=== PATIENT | female | born 1955 | race Caucasian/White ===

== ENCOUNTER → 2020-04-11 16:05 | Outpatient (CLI) | payer BC, SELFPAY ==
--- NOTE | ~2020-04-11 | MM_ITS ---
EXAMINATION: MM screening lori BI w krista HISTORY: Screening TECHNIQUE: Craniocaudal and mediolateral oblique 3-D tomosynthesis images were obtained and synthetic 2-D images were generated. CAD analysis was submitted and interpreted. COMPARISON: Comparison to multiple prior studies sequentially, with oldest reviewed study dated 10/09. BREAST PARENCHYMAL COMPOSITION: There are scattered areas of fibroglandular density. FINDINGS: There is no evidence of suspicious mass, calcification, or architectural distortion to sugg est malignancy in either breast. There has been no suspicious interval change. IMPRESSION: 1. No mammographic evidence of malignancy. 2. Recommend routine screening mammography in one year. BI-RADS Category 1: Negative Reviewed, dictated and finalized at location A. SEAT FITTER
== END ==
PROVIDERS: PCP Family Medicine; Visit Provider Family Medicine
DX: Z12.31 Encounter for screening mammogram for malignant neoplasm of breast (principal)
CPT/HCPCS: 77063; 77067

== ENCOUNTER → 2021-06-10 15:48 | Outpatient (CLI) | payer BC, SELFPAY ==
--- NOTE | ~2021-06-10 | MM_ITS ---
EXAMINATION: MM screening lori BI w krista HISTORY: Screening mammogram TECHNIQUE: Craniocaudal and mediolateral oblique 3-D tomosynthesis images were obtained and synthetic 2-D images were generated. CAD analysis was submitted and interpreted. COMPARISON: April 11, 2020, January 28, 2019, October 09, 2017 bilateral screening mammogram examin ations BREAST PARENCHYMAL COMPOSITION: There are scattered areas of fibroglandular density. FINDINGS: There is no evidence of suspicious mass, calcification, or architectural distortion to sugg est malignancy in either breast. There has been no suspicious interval change. IMPRESSION: 1. No mammographic evidence of malignancy. 2. Recommend routine screening mammography in one year. BI-RADS Category 1: Negative Reviewed, dictated and finalized at location A.
== END ==
PROVIDERS: Visit Provider Family Medicine
DX: Z12.31 Encounter for screening mammogram for malignant neoplasm of breast (principal)
CPT/HCPCS: 77063; 77067

== ENCOUNTER → 2022-07-10 07:43 | Outpatient (CLI) | payer BC, SELFPAY ==
--- NOTE | ~2022-07-10 | MMUS_ITS ---
EXAMINATION: MM diagnostic lori BI w krista, US breast LT limited HISTORY: Left breast pain TECHNIQUE: Craniocaudal, mediolateral, and mediolateral oblique 3-D tomosynthesis images of the shanique ts were performed and synthetic 2-D images were generated. CAD analysis was submitted and interpreted . High resolution limited left breast ultrasound was performed. COMPARISON: 06/10/2021, 04/11/2020, 01/28/2019 BREAST PARENCHYMAL COMPOSITION: There are scattered areas of fibroglandular density. FINDINGS: MAMMOGRAPHIC FINDINGS: No suspicious mass, calcification, or architectural distortion are identified in either breast to sug gest malignancy. There has been no suspicious interval change. No mammographic correlate is identifie d for the patient's reported left breast pain. ULTRASOUND: There is no evidence of focal abnormal solid or cystic mass in the vicinity of the patient's reported left breast pain. IMPRESSION: 1. No specific mammographic or sonographic correlate is identified for the patient's reported left br east pain. Further evaluation at this time should be based on clinical assessment. Continued follow-u p physical examination is recommended. 2. Recommend routine screening mammography in one year. BI-RADS Category 1: Negative Reviewed, dictated and finalized at location A. IMPRESSION: 1. No specific mammographic or sonographic correlate is identified for the lola ent's reported left breast pain. Further evaluation at this time should be base d on clinical assessment. Continued follow-up physical examination is recommend ed. 2. Recommend routine screening mammography in one year. BI-RADS Category 1: Negative
== END ==
PROVIDERS: PCP Family Medicine; Visit Provider Family Medicine
DX: N64.4 Mastodynia (principal)
CPT/HCPCS: 76642; 77062; 77066; G0279

== ENCOUNTER 2022-07-31 13:02 | Emergency (ER) | payer BC, SELFPAY ==
[2022-07-31 13:08] VITALS: BP 163/79; PULSE 74; RESP 16; TEMP 36.4; O2SAT 99
[2022-07-31 13:50] LABS: Basophils Absolute Auto 0.1 K/mm3 (0.0-0.1); Basophils Percent Auto 0.7 % (0.2-1.2); Eosinophils Absolute Auto 0.4 K/mm3 (0-0.3); Eosinophils Percent Auto 4.1 % (0-4.4); Hematocrit 39.3 % (37.0-47.0); Hemoglobin 13.3 g/dL (12.0-15.0); Immature Granulocyte Absolute 0.04 K/mm3 (0.00-0.031); Immature Granulocyte Percent A 0.5 % (0-0.5); Lymphocytes Absolute Auto 3.16 K/mm3 (0.9-3.2); Lymphocytes Percent Auto 36.1 % (18.3-44.2); Mean Corpuscular HGB Conc 33.8 g/dl (32-36); Mean Corpuscular Hemoglobin 30.2 pg (26-34); Mean Corpuscular Volume 89.1 fl (80-100); Mean Platelet Volume 10.4 fl (7.4-10.4); Monocytes Absolute Auto 0.5 K/mm3 (0.1-0.6); Monocytes Percent Auto 5.7 % (2.6-8.5); Neutrophils Absolute Auto 4.6 K/mm3 (1.3-6.7); Neutrophils Percent Auto 52.9 % (45.5-73.1); Platelet Count Result 310 k/mm3 (150-375); Red Blood Count 4.41 M/mm3 (4.2-5.4); Red Cell Distribution Width 13.2 % (11.5-14.5); White Blood Count 8.8 K/mm3 (4.5-10.0)
[2022-07-31 14:04] LABS: Alanine Aminotransferase 43 U/L (6-35); Albumin Level 4.5 g/dL (3.5-5.1); Alkaline Phosphatase 135 U/L (38-126); Anion Gap 7 mmol/L (8-16); Aspartate Amino Transferase 38 U/L (14-36); Bilirubin,Total 0.7 mg/dL (0.2-1.3); Blood Urea Nitrogen 24 mg/dL (7-17); Calcium 9.4 mg/dL (8.4-10.2); Carbon Dioxide 29 mmol/L (22-30); Chloride 102 mmol/L (98-107); Estimated CRCL calculation 65 ml/min; Estimated Glomerular Filt Rate > 60; Glucose 199 mg/dL (65-110); Potassium 3.8 mmol/L (3.4-5.0); Sodium 138 mmol/L (137-145)
[2022-07-31 14:13] LABS: Add Urine Microscopic? YES; Appearance Urine Clear (Clear); Bacteria Urine None Seen /hpf; Bilirubin Urine Negative (Negative); Blood Urine Negative (Negative); Color Urine Yellow (Yellow); Glucose Urine UA 3+ mg/dL (Negative); Ketones Urine Negative (Negative); Leukocyte Esterase Ur Negative LEU/UL (Negative); Need Manual Microscopic Reviewed; Nitrate Urine Negative (Negative); Non Pathogenic Casts 0-2; Protein Urine 1+ mg/dL (Negative); RBC Urine 0-2 /hpf (0-2); Specific Grav Ur 1.027 (1.001-1.035); Squamous Epithelial Cell Urine None seen /hpf (Few); Urobilinogen Urine 0.2 mg/dL (<2.0)
[2022-07-31 15:07] VITALS: O2SAT 100
[2022-07-31 15:08] VITALS: BP 141/61; O2SAT 100
[2022-07-31 15:16] VITALS: BP 145/59
--- NOTE | 2022-07-31 15:35 | ED.GENADULT ---
HPI - General Adult General Chief complaint: Recheck/Abnormal Lab/Rx Stated complaint: flank pain Time Seen by Provider: 07/31/22 13:50 History of Present Illness HPI narrative: Patient is a 66-year-old female who presents ER with concerns for protein in her urine. She was seen by the [facility] urgent care she was told she had 30+ protein in her urine and she should be evaluated by an ER. Patient reports she has had some UTI in the past and was concerned she may have another as she is having some low back discomfort over the last day. No blood in her urine or dysuria. Denies fevers or chills or sweats. Denies aggravating or alleviating factors of her symptoms. Reports she has had protein in her urine previously. Looking at her my chart it looks as though she had some Klebsiella in her urine on a recent culture in it. She was treated with cephalexin in May. Related Data Allergies Allergy/AdvReac Type Severity Reaction Status Date / Time phenazopyridine [From Azo] Allergy Nausea and Verified 07/31/22 13:34 Vomiting Review of Systems Review of Systems: All systems reviewed & are unremarkable except as noted in HPI and below Constitutional: Constitutional: Denies chills, Denies fatigue and Denies fever(s) ENT: Denies nasal congestion and Denies sore throat Cardiovascular: Cardiovascular: Denies chest pain Gastrointestinal: Gastrointestinal: Denies abdominal pain, Denies nausea and Denies vomiting Genitourinary: Genitourinary: Reports nocturia, Denies dysuria and Denies pelvic pain Musculoskeletal: Musculoskeletal: Reports back pain PMFSH Past Medical History Medical History (Updated 07/31/22 @ 15:40 by Richard Chen MD) Diabetes Hyperlipidemia Hypertension Surgical History Surgical History (Updated 07/31/22 @ 15:40 by Richard Chen MD) No pertinent past surgical history Exam Narrative: GENERAL: Well-appearing, well-nourished, and in no acute distress. HEAD: Normocephalic, atraumatic. EYES: PERRL and EOMI. ENT: Mucous membranes moist. CHEST: Clear to auscultation. No respiratory distress. HEART: Regular rate and rhythm. Normal peripheral pulses. Back: No previous with minor paraspinal muscular tenderness. EXTREMITIES: Normal range of motion. No edema. SKIN: Warm, dry, no rash. NEURO: Alert and oriented x3. PSYCH: Normal mood and affect. Course Course Emergency Course: Patient informed of results. Neuro not felt to reflect UTI or kidney stone passage. Renal function normal. Electrolytes also normal. Recommend follow-up with PCP. Recommend Tylenol for low back pain. Vital Signs Vital signs: Vital Signs Temperature 97.6 F 07/31/22 13:08 Pulse Rate 74 07/31/22 13:08 Respiratory Rate 16 07/31/22 13:08 Blood Pressure 163/79 H 07/31/22 13:08 Pulse Oximetry 99 07/31/22 13:08 Temperature 97.6 F 07/31/22 13:08 Pulse Rate 74 07/31/22 13:08 Respiratory Rate 16 07/31/22 13:08 Blood Pressure 145/59 H 07/31/22 15:16 Pulse Oximetry 100 07/31/22 15:08 Medical Decision Making Vital Signs Vital Signs: Vital Signs Temperature 97.6 F 07/31/22 13:08 Pulse Rate 74 07/31/22 13:08 Respiratory Rate 16 07/31/22 13:08 Blood Pressure 163/79 H 07/31/22 13:08 Pulse Oximetry 99 07/31/22 13:08 Temperature 97.6 F 07/31/22 13:08 Pulse Rate 74 07/31/22 13:08 Respiratory Rate 16 07/31/22 13:08 Blood Pressure 145/59 H 07/31/22 15:16 Pulse Oximetry 100 07/31/22 15:08 Lab Data 07/31/22 13:37 07/31/22 13:37 Labs: Lab Results 07/31/22 Range/Units 13:37 WBC 8.8 (4.5-10.0) K/mm3 RBC 4.41 (4.2-5.4) M/mm3 Hgb 13.3 (12.0-15.0) g/dL Hct 39.3 (37.0-47.0) % MCV 89.1 (80-100) fl MCH 30.2 (26-34) pg MCHC 33.8 (32-36) g/dl RDW 13.2 (11.5-14.5) % Plt Count 310 (150-375) k/mm3 MPV 10.4 (7.4-10.4) fl Immature Gran % (Auto) 0.5 (0-0.5) % Neut % (Auto) 52.9 (
== END 2022-07-31 15:48 | disposition home or self-care (01) ==
PROVIDERS: Emergency Provider Emergency Medicine; PCP Family Medicine
DX: R80.9 Proteinuria, unspecified (principal); M54.50 Low back pain, unspecified; E11.9 Type 2 diabetes mellitus without complications; E78.5 Hyperlipidemia, unspecified; I10 Essential (primary) hypertension
CPT/HCPCS: 36415; 80053; 81001; 85025; 87077; 87086; 87088; 99283

== ENCOUNTER → 2022-08-29 10:57 | Outpatient (CLI) | payer BC, SELFPAY ==
--- NOTE | ~2022-08-29 | US_ITS ---
EXAMINATION: US pelvic complete DATE: 08/29/2022 11:24 INDICATION: Cyst seen on CT (presumably an outside imaging study). Postmenopausal. No hormone therapy . TECHNIQUE: Multiple transabdominal and endovaginal sonographic images of the pelvis were obtained. COMPARISON: None. FINDINGS: Uterus: 6.6 x 2.6 x 3.6 cm. Endometrial complex measures 3 mm. Right Ovary: 3.5 x 3.1 x 3.7 cm. Vascular flow is present. 2.9 cm circumscribed anechoic avascular ri ght ovarian lesion with increased through transmission. Left Ovary: 1.6 x 2.0 x 3.1 cm. Vascular flow is present. No adnexal mass. There is no free fluid in the pelvis. IMPRESSION: 2.9 cm simple right ovarian cyst, a benign and consequential finding requiring no additional follow-u p. Otherwise normal transabdominal pelvic sonogram findings. Reviewed, dictated and finalized at location K. IMPRESSION: 2.9 cm simple right ovarian cyst, a benign and consequential finding requiring no additional follow-up. Otherwise normal transabdominal pelvic sonogram jami dexter.
== END ==
PROVIDERS: PCP Family Medicine; Visit Provider Family Medicine
DX: N83.291 Other ovarian cyst, right side (principal)
CPT/HCPCS: 76856

== ENCOUNTER 2023-09-07 13:17 | Outpatient (CLI) | payer OTHER, SELFPAY ==
--- NOTE | ~2023-09-07 | MM_ITS ---
EXAMINATION: MM screening lori BI w krista HISTORY: Screening TECHNIQUE: Craniocaudal and mediolateral oblique 3-D tomosynthesis images were obtained and synthetic 2-D images were generated. CAD analysis was submitted and interpreted. COMPARISON: Comparison to multiple prior studies sequentially, with oldest reviewed study dated 10/09. BREAST PARENCHYMAL COMPOSITION: Not dense: There are scattered areas of fibroglandular density. FINDINGS: There is no evidence of suspicious mass, calcification, or architectural distortion to sugg est malignancy in either breast. There has been no suspicious interval change. IMPRESSION: 1. No mammographic evidence of malignancy. 2. Recommend routine screening mammography in one year. BI-RADS Category 1: Negative Reviewed, dictated and finalized at location B.
== END 2023-09-07 13:18 ==
LOC: MICIMG 13:18
PROVIDERS: PCP Family Medicine; Visit Provider Family Medicine
DX: Z12.31 Encounter for screening mammogram for malignant neoplasm of breast (principal)
CPT/HCPCS: 77063; 77067

== ENCOUNTER 2024-07-26 10:17 | Outpatient (CLI) | payer MEDICARE, SELFPAY ==
--- NOTE | ~2024-07-26 | MMUS_ITS ---
Examination: MM diagnostic ROMANA BI W krista, US breast LT limited INDICATION: 68-year old female; Nonfocal LEFT warmth in the inferior breast and left nipple pain fo r one week. COMPARISON: 09/07/2023 through 10/09/2017 TECHNIQUE: Digital Breast Tomosynthesis CC, MLO views of Both breasts were obtained with computer-ai ded detection to assist in interpretation of the study. MAMMOGRAM FINDINGS: There are scattered areas of fibroglandular density. There are no suspicious masses, calcifications, architectural distortion or other abnormalities in Le ft breast. No mammographic abnormality correlates to the area of left breast concerns. LEFT BREAST ULTRASOUND FINDINGS: Targeted ultrasound at the area of the patient's patient's focal pain in the subareolar and inferior Left breast reveals reveals no discrete cystic or solid lesions IMPRESSION: NO EVIDENCE OF MALIGNANCY IN BILATERAL BREAST. NO MAMMOGRAPHIC OR SONOGRAPHIC ABNORMALITY CORRELATES TO THE AREA OF LEFT BREAST CLINICAL CONCERN. RECOMMENDATIONS: CLINICAL MANAGEMENT OF PATIENT'S BREAST PAIN. BI-RADS 2, BENIGN Reviewed, dictated and finalized at location B. IMPRESSION: NO EVIDENCE OF MALIGNANCY IN BILATERAL BREAST. NO MAMMOGRAPHIC OR SONOGRAPHIC ABNORMALITY CORRELATES TO THE AREA OF LEFT BREAS T CLINICAL CONCERN. RECOMMENDATIONS: CLINICAL MANAGEMENT OF PATIENT'S BREAST PAIN. BI-RADS 2, BENIGN
--- OUTSIDE RECORDS SUMMARY | 2024-07-26 10:29 | XMS_ITS | CONTINUITY OF CARE DOCUMENT ---
Author Name aec bello Address Unknown Organization [facility] [address] Address [address] [place] [address] Phone [phone] Care Team Providers Care Huller Operator Name Role Phone ace blelo Unavailable Unavailable
--- OUTSIDE RECORDS SUMMARY | 2024-07-26 10:29 | XMS_ITS | Clinical Summary ---
Author Organization [facility] Address [address] [place] [address] Care Team Providers Care Excellence Manager Name Role Phone Víctor Love MD Primary Care Provider Jono desouza Source Comments [facility],non-owned Affiliates and Associated Physician Practices is amultiple site organization consisting of ambulatory clinics and hospital sitesin [place], [place], [place] and [place]. This disclosure is being madepursuant to the Care Everywhere program and may not contain all information available regarding this patient. Last updated 17.[facility] [employer] Social History Tobacco Use Types Packs/Day Years Used Date Smoking Tobacco: Never Assessed Comments Unknown Sex and Gender Information Value Date Recorded Sex Assigned at Not on file Legal Sex Female 6:22 AM PARTS INTERPRETER Gender Identity Not on file Sexual Orientation Not on file Plan of Treatment Health Maintenance Due Date Last Done Comments BONE DENSITY TESTING 1957 COLOGUARD (AGES 45-75) - COL ON CA SCREENING 1957 COLON MONITORING 1957 COLONOSCOPY - COLON CA SCREENING 1957 CT COLONOGRAPHY - COLON CA SCREENING 1957 Colorectal Cancer Screening 1957 FIT - COLON CA SCREENING 1957 FLEX SIG - COLON CA SCREENING 1957 LIPID TESTING 1957 MAMMOGRAM 1957 HEPATITIS C SCREENING 07/29/1975 DTAP/TDAP/TD VACCINES (1 - Tdap) 1976 PNEUMOCOCCAL VACCINE 50+ (1 of 1 - PCV) 08/03/2007 ZOSTER VACCINE (1 of 2) 08/03/2007 COVID-19 VACCINE (1 - 2023-2 5 season) 2023 DEPRESSION SCREENING 02/23/2024 INFLUENZA VACCINE (Season Ended) 2024 Respiratory Syncytial Virus (RSV) Vaccine Pt: or over 60 yrs (1 - 1-dose 75+ series) 2032 HEPATITIS B VACCINE Aged Out No longe r eligible based on patient's age to complete this topic HIB VACCINE Aged Out No longer eligi ble based on patient's age to complete this topic HPV VACCINE Aged Out No longer eligi ble based on patient's age to complete this topic MENINGOCOCCAL (Group B) VACC INE SHARED DECISION-MAKING Aged Out No longer eligibl e based on patient's age to complete this topic MENINGOCOCCAL GROUPS A/C/Y/W VACCINE Aged Out No longer eligible b ased on patient's age to complete this topic Insurance Member Subscriber Plan / Payer (Ef fective 2017-Present) Name:Gregorio Shafer Relation to Subscriber:Self Name:GREGORIO SHAFER Payer ID:[id number] (NAIC) Type:PPO Address: [facility] [address] [place] [id number] Care Teams Excellence Manager Relationship Specialty Start Date End Date Víctor Love MD PCP - General 01/21/18
--- OUTSIDE RECORDS SUMMARY | 2024-07-26 10:29 | XMS_ITS | Encounter Summary ---
Author Organization [facility] Address [address] [place] [address] Care Team Providers Care Home Planning Consultant Salesperson Name Role Phone Víctor Love MD Primary Care Provider Jono desouza Encounter Details Date Type Department Care Team (Late st Contact Info) Description 08/07/2021 Lab Requisition [facility] DermPath Lab [address] [place] [address] [place] [address] [place] [address] Social History Tobacco Use Types Packs/Day Years Used Date Smoking Tobacco: Never Assessed Comments Unknown Sex and Gender Information Value Date Recorded Sex Assigned at Not on file Legal Sex Female 6:22 AM SEGREGATOR Gender Identity Not on file Sexual Orientation Not on file documented as of this encounter Plan of Treatment Not on file documented as of this encounter Procedures Procedure Name Priority Date/Time Associated Diagnosis Comments DERMATOPATHOLOGY Routine 08/06/2021 12:0 0 AM CDT documented in this encounter Results * DERMATOPATHOLOGY (08/06/2021 12:00 AM CDT) Case Report Dermatopathology Report Case: [id number] Authorizing Provider: Eze Stallings MD Collected: 08/06/2021 12:00 AM Ordering Location: [facility] DermPath Lab Received: 08/07/2021 04:47 PM Pathologist: Connie Newby MD Specimens: A) - Skin, left lower ant leg B) - Skin, right lower ant tib 1:14 PM CDT DERMATOPATHOLOGY LABORATORY Final Diagnosis Specimen A. 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 SKIN, right lower ant tib: BASAL CELL CARCINOMA, NODULAR TYPE (C44.712) (see microscopic description) 2 1:14 PM CDT DERMATOPATHOLOGY LABORATORY at 1314 CDT Clinical History A-B: R/O SCC vs psoriasis. 1:14 PM CDT DERMATOPATHOLOGY LABORATORY Gross Description Specimen A: Received is one formalin filled container labeled with the patient's name and designated left lower ant leg. The specimen consists of a shave biopsy measuring [id number]. Jar 0. Specimen B: Received is one formalin filled container labeled with the patient's name and designated right lower ant tib. The specimen consists of a shave biopsy measuring [id number]. Jar 0. 1:14 PM CDT DERMATOPATHOLOGY LABORATORY Microscopic Description Specimen A. SKIN, left lower ant leg: The epidermis shows parakeratosis, full thickness disorderly maturation of keratinocytes, mitoses at different levels, and dyskeratotic cells. Specimen B. SKIN, right lower ant tib: Collections of basaloid cells are present in the dermis, which are highlighted on a Dennis-EP4 immunohistochemical stain. Original and deeper sections were reviewed. 1:14 PM CDT DERMATOPATHOLOGY LABORATORY Disclaimer An external and internal positive and negative controls are appropriate for the histochemical, immunohistochemical and immunofluorescence stain(s) in this case (if any), except where stated explicitly. The performance characteristics of the stain(s) cited in this report were developed and its performance characteristic determined by the Dermatopathology Laboratory at [facility], directed by Dr. Sarwat Steven. These tests need not be, and therefore are not, approved by the [place] Food and Drug Administration. The tests are used for clinical purposes. Billing Codes Specimen Charges Stain Charges 83996 67986 1 1 58717 1 2 1:14 PM CDT DERMATOPATHOLOGY LABORATORY Embedded Images 1:14 PM CDT DERMATOPATHOLOGY LABORATORY Pathology/Cytology TISSUE SPECIMEN FROM SKIN / Unknown 08/06/2021 08/07/2021 4:47 PM CDT Miscellaneous samples (specimen) TISSUE SPECIMEN FROM SKIN / Unknown 08/06/2021 08/07/2021 4:47 PM CDT us Eze Stallings MD LAB - PATHOLOGY/CYTOLOGY ORDERAB LES Final Result DERMATOPATHOLOGY LABORATORY [facility] - Department of Dermatology [facility] Specialized Medicine [address] [place] [address], [address] [phone] documented in this encounter Visit Diagnoses Not on filedocumented in this encounter Care Teams Home Planning Consultant Salesperson Relationship Specialty Start Date End Date Víctor Love MD PCP - General 01/21/18 documented as of this encounter
--- OUTSIDE RECORDS SUMMARY | 2024-07-26 10:29 | XMS_ITS | Encounter Summary ---
Author Organization [facility] Healthcare Address [address] [place] [address] Care Team Providers Care Internal Grinder Tender Name Role Phone Ronan Ellis MD Primary Care Provider [phone] Reason for Visit * Reason Onset Date Comments Medical Question/Miscellaneous 01/24/2024 Encounter Details Date Type Department Care Team (Late st Contact Info) Description 01/24/2024 Telephone Family Physicians [facility] [address] [place] [address] Ronan Ellis MD [address] [place] [address] Medical Question/Miscellaneous Social History Tobacco Use Types Packs/Day Years Used Date Smoking Tobacco: Never Smokeless Tobacco: Never Alcohol Use Standard Drinks/Week Comments No 0 (1 standard drink = 0.6 oz pur e alcohol) PHQ-2 Answer Date Recorded PHQ-2 Total Score (If total score is 3 or more points, staff should administer the PHQ-9) 0 01/11/2024 Comments Unknown Sex and Gender Information Value Date Recorded Sex Assigned at Not on file Legal Sex Female 4:03 AM OPERATOR ENGINEER Gender Identity Not on file Sexual Orientation Not on file documented as of this encounter Plan of Treatment Not on file documented as of this encounter Visit Diagnoses Not on filedocumented in this encounter Additional Health Concerns Infection Onset Date Last Indicated Resolved Time COVID: Suspected 02/08/2024 02/08/2024 02/08/2024 1:52 PM OPERATOR ENGINEER documented as of this encounter Care Teams Internal Grinder Tender Relationship Specialty Start Date End Date Ronan Ellis MD [address] [place] [address] PCP - General 05/22/16 documented as of this encounter
--- OUTSIDE RECORDS SUMMARY | 2024-07-26 10:29 | XMS_ITS | Encounter Summary ---
Author Organization [facility] Address [address] [place] [address] Care Team Providers Care Motor Boss Name Role Phone Víctor Love MD Primary Care Provider Jono desouza Encounter Details Date Type Department Care Team (Late st Contact Info) Description 07/31/2021 Lab Requisition [facility] DermPath Lab [address] [place] [address] [place] [address] [place] [address] Social History Tobacco Use Types Packs/Day Years Used Date Smoking Tobacco: Never Assessed Comments Unknown Sex and Gender Information Value Date Recorded Sex Assigned at Not on file Legal Sex Female 6:22 AM GAMING COMMISSIONER Gender Identity Not on file Sexual Orientation Not on file documented as of this encounter Plan of Treatment Not on file documented as of this encounter Procedures Procedure Name Priority Date/Time Associated Diagnosis Comments DERMATOPATHOLOGY Routine 07/29/2021 3:33 AM CDT documented in this encounter Results * DERMATOPATHOLOGY (07/29/2021 3:33 AM CDT) Case Report Dermatopathology Report Case: [id number] Authorizing Provider: Eze Stallings MD Collected: 07/29/2021 03:33 AM Ordering Location: [facility] DermPath Lab Received: 07/31/2021 06:57 AM Pathologist: Connie Newby MD Specimen: Skin, left lower post leg 3:20 PM CDT DERMATOPATHOLOGY LABORATORY Final Diagnosis Specimen A. SKIN, left lower post leg: SQUAMOUS CELL CARCINOMA IN SITU (RETANA'S DISEASE) (D04.72) 2 3:20 PM CDT DERMATOPATHOLOGY LABORATORY at 1520 CDT Clinical History R/O Neoplasm vs. Psoriasis 2 3:20 PM CDT DERMATOPATHOLOGY LABORATORY Gross Description Specimen A: Received is one formalin filled container labeled with the patient's name and designated left lower post leg. The specimen consists of a shave biopsy measuring [id number]. Jar 0. 2 3:20 PM CDT DERMATOPATHOLOGY LABORATORY Microscopic Description Specimen A. SKIN, left lower post leg: The epidermis shows parakeratosis, full thickness disorderly maturation of keratinocytes, mitoses at different levels, and dyskeratotic cells. 2 3:20 PM CDT DERMATOPATHOLOGY LABORATORY Disclaimer An external and internal positive and negative controls are appropriate for the histochemical, immunohistochemical and immunofluorescence stain(s) in this case (if any), except where stated explicitly. The performance characteristics of the stain(s) cited in this report were developed and its performance characteristic determined by the Dermatopathology Laboratory at [facility], directed by Dr. Sarwat Steven. These tests need not be, and therefore are not, approved by the [place] Food and Drug Administration. The tests are used for clinical purposes. Billing Codes Specimen Charges Stain Charges 98634 1 2 3:20 PM CDT DERMATOPATHOLOGY LABORATORY Embedded Images 2 3:20 PM CDT DERMATOPATHOLOGY LABORATORY Pathology/Cytolo gy TISSUE SPECIMEN FROM SKIN / Unknown 07/29/2021 3:33 AM CDT 07/31/2021 6:57 AM CDT us Eze Stallings MD LAB - PATHOLOGY/CYTOLOGY ORDERAB LES Final Result DERMATOPATHOLOGY LABORATORY [facility] - Department of Dermatology [facility] Medicine [address] [place] [address], [address] [place] [address], [facility] [phone] documented in this encounter Visit Diagnoses Not on filedocumented in this encounter Care Teams Motor Boss Relationship Specialty Start Date End Date Víctor Love MD PCP - General 01/21/18 documented as of this encounter
--- OUTSIDE RECORDS SUMMARY | 2024-07-26 10:29 | XMS_ITS | Encounter Summary ---
Author Organization [facility] Healthcare Address [address] [place] [address] Care Team Providers Care Chinchilla Machine Operator Name Role Phone Ronan Ellis MD Primary Care Provider [phone] Encounter Details Date Type Department Care Team (Late st Contact Info) Description 02/07/2024 Telephone Family Physicians [facility] [address] [facility] [place] [address] Ronan Ellis MD [facility] [place] [address] Social History Tobacco Use Types Packs/Day Years [...] on file Legal Sex Female 4:03 AM MARKETING SALES MANAGER Gender Identity Not on file Sexual Orientation Not on file documented as of this encounter Plan of Treatment Not on file documented as of this encounter Visit Diagnoses Not on filedocumented in this encounter Additional Health Concerns Infection Onset Date Last Indicated Resolved Time COVID: Suspected 02/08/2024 02/08/2024 02/08/2024 1:52 PM MARKETING SALES MANAGER documented as of this encounter Care Teams Chinchilla Machine Operator Relationship Specialty Start Date End Date Ronan [place] [address] PCP - General 05/22/16 documented as of this encounter
--- OUTSIDE RECORDS SUMMARY | 2024-07-26 10:29 | XMS_ITS | Encounter Summary ---
Author Organization [facility] Address [address] [place] [address] Care Team Providers Care Talent Partner Name Role Phone Ronan Ellis MD Primary Care Provider [phone] Reason for Visit * Reason Onset Date Comments Prior Auth for Novolog Flex pen 07/25/2024 Encounter Details Date Type Department Care Team (Late st Contact Info) Description 07/25/2024 Telephone [facility] [address] [place] [address] Ronan Ellis MD [address] [place] [id number] Prior Auth for Novolog Flex pen Social History Tobacco Use Types Packs/Day Years Used Date Smoking Tobacco: Never Smokeless Tobacco: Never Alcohol Use Standard Drinks/Week Comments No 0 (1 standard drink = 0.6 oz pur e alcohol) PHQ-2 Answer Date Recorded PHQ-2 Total Score (If total score is 3 or more points, staff should administer the PHQ-9) 0 07/11/2024 Comments Unknown Sex and Gender Information Value Date Recorded Sex Assigned at Not on file 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 and made aware that Novolog Flex Pen was already PA approval back on 03/07/2024 and good till 02/21/2025. They only will approval 30 days supply so updated in the computer and wentthrough with no problem. * Telephone Encounter - Amber Jenkins CMA - 07/25/2024 9:31 AM CDT Received fax pharmacy in reference to Novolog Flex Pen is needing a PA through cover my meds with [employer]:[id number]. Will phone pharmacy to make aware Prior authorization approval for Novolog Flexkacey angelo from 03/07/2024- 02/21/2025 has already been done. documented in this encounter Plan of Treatment Not on file documented as of this encounter Visit Diagnoses Not on filedocumented in this encounter Care Teams Talent Partner Relationship Specialty Start Date End [place] [address] PCP - General 05/22/16 documented as of this encounter
--- OUTSIDE RECORDS SUMMARY | 2024-07-26 10:29 | XMS_ITS | Clinical Summary ---
Author Organization [facility] [facility] [place] Address [address] [place] [address] Care Team Providers Care Ankle Patch Molder Name Role Phone Ronan Ellis MD Primary Care Provider [phone] Allergies Active Allergy Reactions Criticality Noted Date Comments Phenazopyridine Medications flash glucose sensor (FreeStyle Xochitl 14 Day Sensor) kitIndications:Typ e 2 diabetes mellitus with hyperglycemia, with long-term current use of insulin (HCC) Change every 14 days 3 kit 3 020 Active pen needle, diabetic (BD Ultra-Fine Ligia Pen Needle) 32 gauge x 5/32 needle Use as directed with toujeo and humalog pens. 100 each 024 Active albuterol HFA (PROVENTIL HFA,VENTOLIN HFA,PROAIR HFA) 90 mcg/actuation inhaler 2 puffs every 4 (four) hours as needed 024 Active guaiFENesin-codein e (GUAITUSS AC) liquid 100-10 mg/5 mL Take 5-10 mL by mouth every 4 (four) hours as needed for cough 120 mL 024 Active insulin aspart niacinamide (FIASP) 100 unit/mL (3 mL) pen for injection Inject 1-4 times per day SQ as directed. Dose as per sliding scale. Maximum of 45 units/day 45 mL 3 024 Active insulin regular (HumuLIN R, NovoLIN R) 100 unit/mL vial for injection Inject 1-4 times SQ as directed per sliding scale. Maximum of 45 units/day. 40 mL 024 Active insulin syringe-needle U-100 0.5 mL 31 gauge x 5/16 syringe Use to inject 1-4 times daily as directed. 300 each 4 024 Active cyclobenzaprine (FLEXERIL) 10 mg tablet Take 1 tablet (10 mg total) by mouth 3 (three) times a day as needed for muscle spasms 30 tablet Active blood-glucose sensor (FreeStyle Xochitl 3 Sensor) device 1 Units every 14 (fourteen) days 6 each 3 024 Active colestipoL (COLESTID) 1 gram tabletIndications: Mixed hyperlipidemia TAKE 1 TABLET BY MOUTH EVERY DAY 90 tablet 2 Active insulin glargine 100 unit/mL (3 mL) pen for injection Inject 70 Units under the skin daily 45 mL 4 025 Active fenofibrate nanocrystallized (TRICOR) 145 mg tablet Take 1 tablet (145 mg total) by mouth daily 90 tablet 3 025 Active omeprazole (PriLOSEC) 40 mg capsule TAKE 1 CAPSULE BY MOUTH DAILY 90 capsule 3 025 Active potassium chloride ER 20 mEq CR tablet TAKE 1 TABLET BY MOUTH DAILY 90 tablet 3 025 Active furosemide (LASIX) 40 mg tablet TAKE 1 TABLET BY MOUTH DAILY 90 tablet 3 025 Active pravastatin (PRAVACHOL) 20 mg tablet TAKE 1 TABLET BY MOUTH DAILY 90 tablet 3 025 Active irbesartan-hydroch lorothiazide (AVALIDE) 150-12.5 mg per tablet TAKE 1 TABLET BY MOUTH DAILY 100 tablet 2 025 Active insulin aspart (NovoLOG) 100 unit/mL (3 mL) pen for injection INJECT SUBCUTANEOUSLY 1 TO 4 TIMES DAILY DIRECTED PER SLIDING SCALE. MAXIMUM OF 45 UNITS/DAY. 15 mL 11 025 Active empagliflozin (JARDIANCE) 25 mg tablet Take 1 tablet (25 mg total) by mouth daily 30 tablet 2 025 Active dapagliflozin propanediol (Farxiga) 5 mg tablet Take 1 tablet (5 mg total) by mouth daily 90 tablet 3 023 07/11 Discontinued( Alternate therapy) empagliflozin (JARDIANCE) 10 mg tablet Take 1 tablet (10 mg total) by mouth daily 90 tablet 1 025 07/11 Discontinued( Alternate therapy) insulin aspart (NovoLOG) 100 unit/mL (3 mL) pen for injection Inject SQ 1-4 times daily as directed per sliding scale. Maximum of 45 units/day. Must submit claim as INSULIN ASPART. 45 mL 1 025 07/05 Discontinued irbesartan-hydroch lorothiazide (AVALIDE) 150-12.5 mg per tablet Take 1 tablet by mouth daily 100 tablet 025 06/29 Discontinued Active Problems Problem Noted Date Diagnosed Date History of nonmelanoma skin cancer 07/17/2024 Assessment & Plan (07/17/2024 7:40 AM CDT): Referral to dermatology for skin f/u on evaluation for prior and new skin lesion and will monitor response. Skin lesion of left leg 07/17/2024 Assessment & Plan (07/17/2024 7:40 AM CDT): As above. No s/s of secondary bacterial infection. Acute cough 02/08/2024 Assessment & Plan (02/08/2024 12:32 PM INSTRUCTIONAL DESIGN MANAGER): Negative swabs today. Clinically stable. Will continue with conservative measures. Red flags reviewed. Flank pain 01/23/2024 Assessment & Plan (02/08/2024 12:31 PM INSTRUCTIONAL DESIGN MANAGER): Reviewed recent workup. UA unremarkable. Recommend treating for musculoskeletal strain. Muscle relaxant, gentle stretching, heat. Red flags reviewed. Monitor response. She is in agreement with plan states understanding. Assessment & Plan (01/23/2024 1:42 PM INSTRUCTIONAL DESIGN MANAGER): Reivweed redf lag s/s. Reviweed prior w/up. Reivweed and montior for blood in the stools, or blood in the urine. WIll montiro response. Gastroesophageal reflux disease 01/23/2024 Assessment & Plan (07/17/2024 7:39 AM CDT): Stable on omeprazole and will continue with no dysphaiga, no melena, no hematochezia. Assessment & Plan (01/23/2024 1:43 PM INSTRUCTIONAL DESIGN MANAGER): Stable on ppi. No dysphagia. No blood in the stools, no melena. Type 2 diabetes mellitus with hyperlipidemia 02/2023 Assessment & Plan (07/17/2024 7:38 AM CDT): Continues on secondary prevention with pravastatin and will monitor response. No new myalgias/arthalgias and will monitor response. Assessment & Plan (01/23/2024 1:43 PM INSTRUCTIONAL DESIGN MANAGER): Stable on pravastatin. No intolernce to myalgias. BMI 33.0-33.9,adult 01/23/2024 Assessment & Plan (01/23/2024 1:43 PM INSTRUCTIONAL DESIGN MANAGER): Encourage 150min/week aerobic exericse. Heatlhy food chocies. Target of 150min/week aerobic exercise. Obesity (BMI 30.0-34.9) 01/23/2024 Assessment & Plan (07/17/2024 7:39 AM CDT): Encourage 150min/week aerobic exericse. Healthy food choices. Reviewed glp-1 agonist therpay and patient concerned about gi side effects. Assessment & Plan (01/23/2024 1:43 PM INSTRUCTIONAL DESIGN MANAGER): As above. Lower respiratory tract infection 09/01/2023 Assessment & Plan (09/01/2023 12:20 PM CDT): Clinically stable. Will initiate Augmentin. Recommend Mucinex. Will also E scribe Cheratussin. Take with caution as can cause sedation, do not drive. Continue with albuterol inhaler use. Will defer steroids due to uncontrolled diabetes. Will order chest x-ray to complete if not improving in the next 3 days. We reviewed red flags which would warrant RTC or ED. she is in agreement with plan and states understanding. BMI 31.0-31.9,adult 07/11/2020 Overview (07/11/2020): ENcourage regualr aerobic exercise adn follow response. Mixed hyperlipidemia 05/16/2017 Hypertension associated with diabetes 03/02/2017 Assessment & Plan (07/17/2024 7:37 AM CDT): Stable on avalide 150/12.5mg. reivwed home bp targets and will continue to follow response. No chest pains/pressures/palptiations. Assessment & Plan (02/08/2024 12:30 PM INSTRUCTIONAL DESIGN MANAGER): Normotensive. Continue irbesartan/hydrochlorothiazide. Will continue to monitor. Assessment & Plan (01/23/2024 1:42 PM INSTRUCTIONAL DESIGN MANAGER): OCntinues on irbesartan/hctz and will folwlor espnose. Assessment & Plan (09/01/2023 12:19 PM CDT): Normotensive. Continue irbesartan/hydrochlorothiazide. Will continue to monitor. Assessment & Plan (01/21/2020 11:56 AM INSTRUCTIONAL DESIGN MANAGER): Reviweed goal blood pressure and contineu on arb-diuretic. Type 2 diabetes mellitus wit h hyperglycemia, with long-term current use of insulin 07/10/2015 Overview (05/28/2016): Diabetes type 2 on insulin Assessment & Plan (07/17/2024 7:38 AM CDT): Reivewed use of humulin and lantus with uptitration and will follow for evidence of improved control and decreased hypoglycemia. Assessment & Plan (02/08/2024 12:30 PM INSTRUCTIONAL DESIGN MANAGER): Continue with current regimen. CGM applied today. Monitor blood glucose. Offered referral to Endocrinology but she declines. Keep follow-up as scheduled with PCP. Red flags reviewed. Assessment & Plan (01/23/2024 1:42 PM INSTRUCTIONAL DESIGN MANAGER): Secondary prevneiton. Reviewed glycemic target. Reviweed and montior for hypoglycemia with rapid acting insulin. WIll follow response. Assessment & Plan (09/01/2023 12:19 PM CDT): Not at goal. Recent medication adjustments. Reports blood glucose 150 in the mornings fasting. Will continue to monitor. Red flags reviewed. Will defer steroids. Assessment & Plan (05/16/2019 3:24 PM CDT): Hba1c was Lab Results Component Value Date HGBA1C 8.6 05/16/2019 today, indicating inadequate DM control 1800 calorie, consistent carb diet recommended. No more than 30-45 grams of carbs per meal recommended, as well as avoiding high concentrated sweet drinks . 25-45 min daily exercise, combining both aerobic and resistance exercise recommended. The need to monitor blood glucose before meals and bedtime was discussed. Prevention and treatment of hyypoglcyemia discussed. Check sugars before meals and bedtime Take Toujeo, 60 units at bedtime Take Novolog, 12 units with meals For sugars over 150, take 14 units For sugars over 200, take 16 units For sugars over 250, take 18 units For sugars over 300, take 20 units Stop Victoza Start Ozempic, 0.25 mg weekly x 4 week, Then continue 0.5 mg weekly Will request a Xochitl continous glucose monitoring Encounters Date Type Department Care Team Description 07/25/2024 Telephone [facility] [address] [address] Ronan Ellis MD Prior Auth for Novolog Flex pen 07/20/2024 Telephone [facility] [address] [address] Ronan Ellis MD Additional Services Or Orders 07/11/2024 4:00 PM CDT Office Visit [facility] at [address] [address] Ronan Ellis MD Skin lesion of left leg (Primary Dx); History of nonmelanoma skin cancer; Hypertension associated with diabetes (HCC); Type 2 diabetes mellitus with hyperlipidemia (HCC); Type 2 diabetes mellitus with hyperglycemia, with long-term current use of insulin (HCC); Gastroesophageal reflux disease, unspecified whether esophagitis present; BMI 34.0-34.9,adult; Obesity (BMI 30.0-34.9) 05/18/2024 Nurse Triage [facility] [address] [place] [address] Ronan Ellis MD from Last 3 Months Immunizations Immunization Administration Dates Next Due Influenza, Quadrivalent, Rec ombinant, Egg Free, Preservative Free, Intramuscular 12/15/2019 Influenza, Quadrivalent, Spl it, Intramuscular 11/21/2014 Influenza, Quadrivalent, Spl it, Preservative Free, Intramuscular 12/15/2022,01/13/2021,11/26/2018,11/25 Influenza, Trivalent, High D ose, Split, Preservative Free, Intramuscular 01/11/2024 Influenza, Trivalent, IM (MDV) 02/22/2013 Influenza, Unspecified 01/11/2024(Deferr ed: Patient Refused),09/09/2022(Deferred: Patient Refused),08/05/2022(Deferred: Patient Refused),07/13/2022(Deferred: Patient Refused),10/23/2021(Deferred: Patient Refused),10/23/2021(Deferred: Patient Refused),10/23/2021(Deferred: Patient Refused),11/26/2017,11/26/2017, 017,11/26/2016 Pfizer SARS-CoV-2 Monovalent Vaccination (12+ Yrs) PURPLE 05/15/2020,04/25/2020 Pneumococcal Conjugate Pcv20 01/11/2024, 09/01/2023(Deferred: Patient ill today) Pneumococcal Polysaccharide PPV23 07/23/2021 RSV IGIV 12/28/2022 TD Preservative Free 09/22/2014 Surgical History Surgery Date Site/Laterality Comments APPENDECTOMY Appendectomy CHOLECYSTECTOMY ROTATOR CUFF REPAIR Medical History Medical History Date Comments Type 2 diabetes mellitus (HCC) D iabetes type 2 Hypertension Hypertension Hx Other Medical cholesterol Hx Other Medical colon issues Hx Other Medical gall bladder Hx Other Medical rotator cuff Hyperlipidemia Family History * Patient is adopted Medical History Relation Name Comments Diabetes type II Brother 3 Diabetes me llitus type 2; Coronary artery disease Brother 4 David nary artery disease; Hypertension Brother 5 Hypertension; Coronary artery disease Father David nary artery disease; Diabetes type II Father Diabetes me llitus type 2; Hypertension Father Hypertension; Thyroid disease Father Thyroid diso rder; Breast cancer Mother Cancer, breast ; Hypertension Mother Hypertension; Stroke Mother Stroke; Heart attack Sister 1 Other Sister 1 sarcidoses; Diabetes type II Sister 2 Diabetes me llitus type 2; Hypertension Sister 3 Hypertension; Thyroid disease Sister 4 Thyroid diso rder; Relation Name Status Comments Brother 1 (Age 61) Brother 2 (Age 61) Brother 3 Brother 4 Brother 5 Father (Age 69) Mother (Age 82) Sister 1 Sister 2 Sister 3 Sister 4 Social History Tobacco Use Types Packs/Day Years Used Date Smoking Tobacco: Never Smokeless Tobacco: Never Tobacco Cessation:Counseling Given: Not Answered Alcohol Use Standard Drinks/Week Comments No 0 (1 standard drink = 0.6 oz pur e alcohol) PHQ-2 Answer Date Recorded PHQ-2 Total Score (If total score is 3 or more points, staff should administer the PHQ-9) 0 07/11/2024 Comments Unknown Sex and Gender Information Value Date Recorded Sex Assigned at Not on file Legal Sex Female 4:03 AM INSTRUCTIONAL DESIGN MANAGER Gender Identity Not on file Sexual Orientation Not on file Obstetrics History Last Filed Vital Signs Vital Sign Reading Time Taken Comments Blood Pressure 144/70 07/11/2024 3:52 PM CDT Pulse 76 07/11/2024 3:52 PM CDT Temperature 36.6 C (97.8 F) 07/11/2024 3:52 PM CDT Respiratory Rate 20 02/08/2024 11:38 AM INSTRUCTIONAL DESIGN MANAGER Oxygen Saturation 98% 07/11/2024 3:52 PM CDT Inhaled Oxygen Concentration - - Weight 88.5 kg (195 lb 1.6 oz) 07/11/2024 3:52 PM CDT Height 161.3 cm (5' 3.5) 07/11/2024 3:52 PM CDT Body Mass Index 34.02 07/11/2024 3:52 PM CDT Plan of Treatment Health Maintenance Due Date Last Done Comments Hepatitis C Screening 1955 Osteoporosis Screening-Bone Density Scan 1955 Hepatitis B Screening 08/03/1975 Zoster Vaccine (1 of 2) 08/03/2007 DTaP/Tdap/Td Vaccine (1 - Tdap) 09/23/2014 5 Foot Exam 05/15/2020 05/16/2019, 03/25, 03/29/2018, Additional history exists Colon Cancer Screening-Colonoscopy 02/22/2021 02/22/2011 Well Visit 65+ 2022 Breast Cancer Screening-Mammogram 07/11/2023 07/10/2022, 06/10/2021, 01/28/2019, Additional history exists Covid-19 Vaccine (3 - 2023-2 5 season) 2023 05/15/2020, 04/25/2020 Dilated Eye Exam 05/24/2024 05/25/2023, , 05/19/2022, Additional history exists Albumin Creatinine Ratio, Urine 06/21/2024 4, 09/09/2022 Hemoglobin A1C 07/25/2024 01/25/2024, 05/25, 12/24/2022, Additional history exists Lipid Panel 01/24/2025 01/25/2024, 3 , 12/24/2022, Additional history exists eGFR 01/24/2025 01/25/2024, 05/25, 12/24/2022, Additional history exists Fall Risk Assessment 02/07/2025 02/08/2024, 01/11/2024, 09/01/2023, Additional history exists Depression Screening 07/11/2025 07/11/2024, 01/11/2024, 06/22/2023, Additional history exists Colon Cancer Screening-CT Colonography Discontinued 02/22/2011 Colon Cancer Screening-DNA Stool Discontinued 02/22/19 12 Colon Cancer Screening-FIT Discontinued 02/22/2011 Colon Cancer Screening-Sigmoidoscopy Discontinued 02/22/2011 Influenza Vaccine Completed 01/11/2024, , 01/13/2021, Additional history exists Pneumococcal vaccine 65+ Completed 01/11/2024, 06/0 02/2021 Procedures Procedure Name Priority Date/Time Associated Diagnosis Comments EGFR Routine 01/25/2024 9:32 AM INSTRUCTIONAL DESIGN MANAGER Type 2 diabetes mellitus with hyperglycemia, with long-term current use of insulin (HCC) HEMOGLOBIN A1C Routine 01/25/2024 9:32 AM INSTRUCTIONAL DESIGN MANAGER Type 2 diabetes mellitus with hyperglycemia, with long-term current use of insulin (HCC) LIPID PANEL Routine 01/25/2024 9:32 AM INSTRUCTIONAL DESIGN MANAGER Type 2 diabetes mellitus with hyperglycemia, with long-term current use of insulin (HCC) ALBUMIN CREATININE RATIO, URINE Routine 06/22/2023 4:12 PM CDT Type 2 diabetes mellitus with hyperglycemia, with long-term current use of insulin (HCC) DIABETES EYE EXAM Routine 05/25/2023 9:06 AM CDT DIAGNOSTIC MAMMOGRAM BILATERAL W MARYAM Schedule Routine, Read Routine (OP Routine) 07/10/2022 Breast pain DIABETES FOOT EXAM Routine 03/02/2017 COLONOSCOPY Routine 02/22/2011 from Last 3 Months or Most Recently Relevant to Health Maintenance Results * (ABNORMAL) eGFR (01/25/2024 9:32 AM INSTRUCTIONAL DESIGN MANAGER) eGFR 51(L) >=60 mL/min/1. 73 m2 Comment: Interpretive Data Reference Interval Normal >/= 90 mL/min/1.73m2 Mildly decreased* 60 - 89 mL/min/1.73m2 Mildly to moderately decreased 45 - 59 mL/min/1.73m2 Moderately to severely decreased 30 - 44 mL/min/1.73m2 Severely decreased 15 - 29 mL/min/1.73m2 Kidney Failure < 15 mL/min/1.73m2 *Relative to young adult level Estimated glomerular filtration rate is determined by the 2020 CKD-EPI equation recommended by the National Kidney Foundation (A Unifying Approach to GFR Estimation: Recommendations of the NKF-ASK Task Force on Reassessing the Inclusion of Race in Diagnosing Kidney Disease, JASN 2020). The CKD-EPI equation should not be used for patients with unstable renal function and has not been validated in children and those over 70. Current interpretive data was last reviewed 2020. Blood 01/25/2024 9:32 AM INSTRUCTIONAL DESIGN MANAGER 01/25/2024 5:25 PM INSTRUCTIONAL DESIGN MANAGER Ronan Ellis MD LAB BLOOD ORDERABLES Emma l Result Performing Organization Address [facility] [place] [phone] [address] [facility] [employer] [place] [address] * (ABNORMAL) Hemoglobin A1c (01/25/2024 9:32 AM INSTRUCTIONAL DESIGN MANAGER) Hgb A1C 10.5(H) 4.0 - 5.6 % Estimated Average Glucose 255 mg/dL MA[place] Comment: The ADA recommends reporting an estimated Average Glucose (eAG) with all Hemoglobin A1c results using the equation derived from a study of 507 normal and diabetic adults. Minority populations were underrepresented and children were not included. (Diabetes Care 31:8878-5113, 2008). The eAG is not equivalent to a fasting glucose. Blood 01/25/2024 9:32 AM INSTRUCTIONAL DESIGN MANAGER 01/25/2024 5:04 PM INSTRUCTIONAL DESIGN MANAGER Ronan Ellis MD LAB BLOOD ORDERABLES Emma l Result Performing Organization Address [facility] [place] [phone] [address] [facility] [employer] [place] [address] * (ABNORMAL) Lipid panel (01/25/2024 9:32 AM INSTRUCTIONAL DESIGN MANAGER) Cholesterol 283(H) 30 - 199 mg/dL Comment: Interpretive Data Ages < or = 19 years Acceptable: <170 mg/dL Borderline high: 170-199 mg/dL High: >or= 200 mg/dL Ages > or = 20 years Desirable: <200 mg/dL Borderline high: 200-239 mg/dL High: >or= 240 mg/dL Literature References: 1. Expert Panel on Integrated Guidelines for Cardiovascular Health and Risk Reduction in Children and Adolescents. Pediatrics 2011;128:S213 2. NCEP Expert Panel. Circulation 2004;110:227 Current Interpretive Data was last revised on 2017. Triglycerides 825(H) <=149 mg/dL MANAS Comment: Interpretive Data Ages < or = 9 years Acceptable: <75 mg/dL Borderline high: 75-99 mg/dL High: >or= 100 mg/dL Ages 10 to 20 years Acceptable: <90 mg/dL Borderline high: 90-129 mg/dL High: >or= 130 mg/dL Ages > or = 20 years Desirable: <150 mg/dL Borderline high: 150-199 mg/dL High: 200-499 mg/dL Very high: >or= 499 mg/dL Literature References: 1. Expert Panel on Integrated Guidelines for Cardiovascular Health and Risk Reduction in Children and Adolescents. Pediatrics 2011;128:S213 2. NCEP Expert Panel. Circulation 2004;110:227 Current Interpretive Data was last revised on 2017. HDL 29(L) >=40 mg/dL MANAS Comment: Interpretive Data Ages < or = 19 years Acceptable: >45 mg/dL Borderline low: 40-45 mg/dL Low: <40 mg/dL Ages > or = 20 years Desirable: >or= 60 mg/dL Low: <40 mg/dL Literature References: 1. Expert Panel on Integrated Guidelines for Cardiovascular Health and Risk Reduction in Children and Adolescents. Pediatrics 2011;128:S213 2. NCEP Expert Panel. Circulation 2004;110:227 Current Interpretive Data was last revised on 2017. LDL, calculated See Comment <=129 mg/dL MANAS Comment: Unable to calculate due to elevated Triglycerides. Interpretive Data Ages < or = 19 years Acceptable: <110 mg/dL Borderline high: 110-129 mg/dL High: >or= 130 mg/dL Ages > or = 20 years Optimal: <100 mg/dL Near optimal: 100-129 mg/dL Borderline high: 130-159 mg/dL High: >160 mg/dL Calculated using the Billy LDL-C estimating equation. This equation was implemented on 2023. Prior to this date LDL-C was estimated using the Friedewald equation. Literature References: 1. Expert Panel on Integrated Guidelines for Cardiovascular Health and Risk Reduction in Children and Adolescents. Pediatrics 2011;128:S213 2. NCEP Expert Panel. Circulation 2004;110:227 3. Billy Culver et al. CLAUDIO Cardiol. 2019June 22;5(5):540549. doi: 10.1001/[email or web address] Current Interpretive Data was last revised on 2023. Non-HDL Cholesterol 254 mg/dL MANAS Comment: Interpretive Data Ages < or = 19 years Acceptable: <120 mg/dL Borderline high: 120-144 mg/dL High: >145 mg/dL Ages > or = 20 years When triglycerides are >200 mg/dL, Non-HDL cholesterol is a secondary target of therapy with treatment goals that are 30 mg/dL greater than the LDL cholesterol target. Literature References: 1. Expert Panel on Integrated Guidelines for Cardiovascular Health and Risk Reduction in Children and Adolescents. Pediatrics 2011;128:S213 2. NCEP Expert Panel. Circulation 2004;110:227 Current Interpretive Data was last revised on 2017. Chol/HDL ratio 10 [facility] Blood 01/25/2024 9:32 AM INSTRUCTIONAL DESIGN MANAGER 01/25/2024 5:04 PM INSTRUCTIONAL DESIGN MANAGER Ronan Ellis MD LAB BLOOD ORDERABLES Emma l Result Performing Organization Address [facility] Co de Phone Number [facility] [phone] [place] [address] * (ABNORMAL) Albumin Creatinine Ratio, Urine (06/22/2023 4:12 PM CDT) Albumin Ur 106.7 mg/L Comment: Interpretive Data No reference range established. Current interpretive data was last revised 2018. Creatinine Ur 22.2 mg/dL [facility] Comment: Interpretive Data No reference range established. Current interpretive data was last revised 2018. Albumin Creatinine Ratio, Ur 481(H) 1 - 29 mg/g [facility] Urine 06/22/2023 4:12 PM CDT 06/22/2023 7:49 PM CDT Ronan Ellis MD LAB URINE ORDERABLES Emma l Result Performing Organization Address City/[facility] Co de Phone Number [facility] [phone] [address] [place] [address] * (ABNORMAL) DIABETES EYE EXAM (05/25/2023 9:06 AM CDT) SCRIBED DIABETIC DILATED EYE EXAM Abnormal Historical Provider HEALTH MAINTENANCE Final Result * DIAGNOSTIC MAMMOGRAM BILATERAL W MARYAM (07/10/2022) Anatomical Region Laterality Modality Breast Bilateral Mammography Ronan Ellis MD IMG MAMMO PROCEDURES Emma l Result * DIABETES FOOT EXAM (03/02/2017) Diabetic Foot Exam Normal SCRIBED DM FOOT SITES SENSED 6 Historical Provider HEALTH MAINTENANCE Final Result * COLONOSCOPY (02/22/2011) Colonoscopy Unknown Comment:Dr Gomez @[facility] [place] in 2011 or 2012 Historical Provider HEALTH MAINTENANCE Final Result from Last 3 Months or Most Recently Relevant to Health Maintenance Insurance [facility] MEDICARE ADVANTAGE MEDICARE ADVANTAGE Care Teams Ankle Patch Molder Relationship Specialty Start Date End Date Ronan Ellis MD [address] [place] [address] PCP - General 05/22/16
--- OUTSIDE RECORDS SUMMARY | 2024-07-26 10:29 | XMS_ITS | Continuity of Care Document ---
Author Organization [facility] Address [address] [place] [address] utive [facility] [address] [place] [address] Phone Care Team Providers Care Mobile Device Developer Name Role Phone Miguel Castellanos Unavailable Unavailable Procedures Procedure Date Office/outpatient Visit, [facility] Advance Directives Directive Yes / No Effective Date File Name No Information Encounters Encounter Description Practice Location Reason(s) For Visit Diagnoses Date Provider Providers Copied on Encounter [place] [facility] [place] [address] [place], [place], [id number], [place] tel:[phone] [facility] No Information [phone] Jasmin Chairezhil. [address] [facility] [address], [place], [address], [place]. tel:[phone] Family History Family Member Type Diagnosis Age At Onset No Information Payers Payer name Insurance type Covered republican ID Authoriza tion(s) No Information Social History Type Description Quantity Date Captured Comments Sex Female Smoking Status No Information Chief Complaint And Reason For Visit No Information Reason For Referral Reason For Referral No Information History Of Present Illness Encounter Date Complaint History Of Prese nt Illness No Information Functional Status Date Functional Assessmen t No Information Instructions Date Instruction Additional Infor mation No Information Assessments Type Assessment Date No Information Patient Care Teams Name Effective Dates (start - stop) Status Members No Information
--- OUTSIDE RECORDS SUMMARY | 2024-07-26 10:29 | XMS_ITS | Referral Summary ---
Author Organization [facility] [address] [facility] lto Address [address] [place] [address] Care Team Providers Care Computer Graphics Illustrator Name Role Phone Ronan Ellis MD Primary Care Provider [phone] Encounters Date Type Department Care Team Description 07/25/2024 Telephone [facility] [address] [address] Ronan Ellis MD Prior Auth for Novolog Flex pen 07/20/2024 Telephone [facility] [address] [address] Ronan Ellis MD Additional Services Or Orders 07/11/2024 4:00 PM CDT Office Visit [facility] at [address] [address] Ronan Ellis MD Skin lesion of left leg (Primary Dx); History of nonmelanoma skin cancer; Hypertension associated with diabetes (HCC); Type 2 diabetes mellitus with hyperlipidemia (HCC); Type 2 diabetes mellitus with hyperglycemia, with long-term current use of insulin (HCC); Gastroesophageal reflux disease, unspecified whether esophagitis present; BMI 34.0-34.9,adult; Obesity (BMI 30.0-34.9) 05/18/2024 Nurse Triage [facility] [address] [address] Ronan Ellis MD from Last 3 Months Allergies Active Allergy Reactions Criticality Noted Date [...] puffs every 4 (four) hours as needed Active guaiFENesin-codein e (GUAITUSS AC) liquid 100-10 mg/5 mL Take 5-10 mL by mouth every 4 (four) hours as needed for cough 120 mL Active insulin aspart niacinamide (FIASP) 100 unit/mL [...] as needed for muscle spasms 30 tablet 024 Active blood-glucose sensor (FreeStyle Xochitl 3 Sensor) device 1 Units every 14 (fourteen) days 6 each 3 024 Active colestipoL (COLESTID) 1 gram tabletIndications: Mixed hyperlipidemia TAKE 1 TABLET BY MOUTH EVERY DAY 90 tablet 2 025 Active insulin glargine 100 unit/mL (3 mL) [...] TABLET BY MOUTH DAILY 100 tablet 2 Active insulin aspart (NovoLOG) 100 unit/mL (3 mL) pen for injection INJECT SUBCUTANEOUSLY 1 TO 4 TIMES DAILY DIRECTED PER SLIDING SCALE. MAXIMUM OF 45 UNITS/DAY. 15 mL 11 025 Active empagliflozin (JARDIANCE) 25 mg tablet Take 1 tablet (25 mg total) by mouth daily 30 tablet 2 Active dapagliflozin propanediol (Farxiga) 5 mg tablet [...] 02/08/2024 Assessment & Plan (02/08/2024 12:32 PM [employer]): Negative swabs today. Clinically stable. Will continue with conservative measures. Red flags reviewed. Flank pain 01/23/2024 Assessment & Plan (02/08/2024 12:31 PM [employer]OR [employer]): Reviewed recent workup. UA unremarkable. Recommend treating for musculoskeletal strain. Muscle relaxant, gentle stretching, heat. Red flags reviewed. Monitor response. She is in agreement with plan states understanding. Assessment & Plan (01/23/2024 1:42 PM G[employer]ERNOR [employer]): Reivweed redf lag s/s. Reviweed prior w/up. Aadn and laurenior for blood in the stools, or blood in the urine. WIll montiro response. Gastroesophageal reflux disease 01/23/2024 Assessment & Plan (07/17/2024 7:39 AM CDT): Stable on omeprazole and will continue with no dysphaiga, no melena, no hematochezia. Assessment & Plan (01/23/2024 1:43 PM G[employer]ERNOR [employer]): Stable on ppi. No dysphagia. No blood in the stools, no melena. Type 2 diabetes mellitus with hyperlipidemia 02/2023 Assessment & Plan (07/17/2024 7:38 AM CDT): Continues on secondary prevention with pravastatin and will monitor response. No new myalgias/arthalgias and will monitor response. Assessment & Plan (01/23/2024 1:43 PM [employer]): Stable on pravastatin. No intolernce to myalgias. BMI 33.0-33.9,adult 01/23/2024 Assessment & Plan (01/23/2024 1:43 PM G[employer]ERNOR [employer]): Encourage 150min/week aerobic exericse. Heatlhy food chocies. Target of 150min/week aerobic exercise. Obesity (BMI 30.0-34.9) 01/23/2024 Assessment & Plan (07/17/2024 7:39 AM CDT): Encourage 150min/week aerobic exericse. Healthy food choices. Reviewed glp-1 agonist therpay and patient concerned about gi side effects. Assessment & Plan (01/23/2024 1:43 PM G[employer]ERNOR [employer]): As above. Lower respiratory tract infection 09/01/2023 [...] pains/pressures/palptiations. Assessment & Plan (02/08/2024 12:30 PM [employer]): Normotensive. Continue irbesartan/hydrochlorothiazide. Will continue to monitor. Assessment & Plan (01/23/2024 1:42 PM G[employer]ERNOR [employer]): OCntinues on irbesartan/hctz and will folwlor espnose. Assessment & Plan (09/01/2023 12:19 PM CDT): Normotensive. Continue irbesartan/hydrochlorothiazide. Will continue to monitor. Assessment & Plan (01/21/2020 11:56 AM G[employer]): Reviweed goal blood pressure and contineu on arb-diuretic. Type 2 diabetes mellitus wit h hyperglycemia, with long-term current use of insulin 07/10/2015 Overview (05/28/2016): Diabetes type 2 on insulin Assessment & Plan (07/17/2024 7:38 AM CDT): Reivewed use of humulin and lantus with uptitration and will follow for evidence of improved control and decreased hypoglycemia. Assessment & Plan (02/08/2024 12:30 PM G[employer]ERNOR [employer]): Continue with current regimen. CGM applied today. Monitor blood glucose. Offered referral to Endocrinology but she declines. Keep follow-up as scheduled with PCP. Red flags reviewed. Assessment & Plan (01/23/2024 1:42 PM G[employer]ERNOR [employer]): Secondary prevneiton. Reviewed glycemic target. Reviweed and [...] Will request a Xochitl continous glucose monitoring Immunizations Immunization Administration Dates Next Due Influenza, [...] RSV IGIV 12/28/2022 TD Preservative Free 09/22/2014 Social History Tobacco Use Types Packs/Day Years [...] on file Legal Sex Female 4:03 AM [employer] Gender Identity Not on file Sexual Orientation Not on file Last Filed Vital Signs Vital Sign Reading Time Taken Comments Blood Pressure 144/70 07/11/2024 3:52 PM CDT Pulse 76 07/11/2024 3:52 PM CDT Temperature 36.6 C (97.8 F) 07/11/2024 3:52 PM CDT Respiratory Rate 20 02/08/2024 11:38 AM [employer] Oxygen Saturation 98% 07/11/2024 3:52 PM CDT Inhaled Oxygen Concentration - - Weight 88.5 kg (195 lb 1.6 oz) 07/11/2024 3:52 P M CDT Height 161.3 cm (5' 3.5) 07/11/2024 3:52 PM CDT Body Mass Index 34.02 07/11/2024 3:52 PM CDT Plan of Treatment Not on file Procedures Procedure Name Priority Date/Time Associated Diagnosis Comments EGFR Routine 01/25/2024 9:32 AM [employer] Type 2 diabetes mellitus with hyperglycemia, with long-term current use of insulin (HCC) HEMOGLOBIN A1C Routine 01/25/2024 9:32 AM [employer] Type 2 diabetes mellitus with hyperglycemia, with long-term current use of insulin (HCC) LIPID PANEL Routine 01/25/2024 9:32 AM [employer] Type 2 diabetes mellitus with hyperglycemia, with long-term current use of insulin (HCC) ALBUMIN CREATININE RATIO, URINE Routine 06/22/2023 4:12 PM CDT Type 2 diabetes mellitus with hyperglycemia, with long-term current use of insulin (HCC) HM DIABETES EYE EXAM Routine 05/25/2023 9:06 AM CDT DIAGNOSTIC MAMMOGRAM BILATERAL W MARYAM Schedule Routine, Read Routine (OP Routine) 07/10/2022 Breast pain HM DIABETES FOOT EXAM Routine 03/02/2017 HM COLONOSCOPY Routine 02/22/2011 from Last 3 Months or Most Recently Relevant to Health Maintenance Results * (ABNORMAL) eGFR (01/25/2024 9:32 AM GOVERNOR [employer]) eGFR 51(L) >=60 mL/min/1. 73 m2 Comment: [...] last reviewed 2020. Blood 01/25/2024 9:32 AM [employer] 01/25/2024 5:25 PM [employer] us Ronan Ellis MD LAB BLOOD ORDERABLES [place] [address] [address] [place] [address] * (ABNORMAL) Hemoglobin A1c (01/25/2024 9:32 AM GOVERNOR [employer]) Hgb A1C 10.5(H) 4.0 - 5.6 % Estimated Average Glucose 255 mg/dL [facility] [place] Comment: The ADA recommends reporting an estimated Average Glucose (eAG) with all Hemoglobin A1c results using the equation derived from a study of 507 normal and diabetic adults. Minority populations were underrepresented and children were not included. (Diabetes Care 31:2555-1813, 2008). The eAG is not equivalent to a fasting glucose. Blood 01/25/2024 9:32 AM [employer] 01/25/2024 5:04 PM G[employer]OR [employer] us Ronan Ellis MD LAB BLOOD ORDERABLES Emma flash Result [place] [address] [address] [place] [address] * (ABNORMAL) Lipid panel (01/25/2024 9:32 AM GOVERNOR [employer]) Cholesterol 283(H) 30 - 199 mg/dL Comment: [...] on 2017. Triglycerides 825(H) <=149 mg/dL [facility] Comment: Interpretive Data Ages < or = [...] on 2017. HDL 29(L) >=40 mg/dL [facility] Comment: Interpretive Data Ages < or = [...] LDL, calculated See Comment <=129 mg/dL [facility] Comment: Unable to calculate due to elevated [...] 3. Billy Culver et al. CLAUDIO Cardiol. 2020 June 22;5(5):540-548. doi: [email or web address] Current Interpretive Data was last revised on 2023. Non-HDL Cholesterol 254 mg/dL [facility] Comment: Interpretive Data Ages < or = [...] last revised on 2017. Chol/HDL ratio 10 [facility] Blood 01/25/2024 9:32 AM G[employer]OR [employer] 01/25/2024 5:04 PM G[employer]ERNOR [employer] us Ronan Ellis MD LAB BLOOD ORDERABLES Emma l Result Performing Organization Address [facility] Co de Phone Number [facility] [id number] [address] [facility] [place] [address] * (ABNORMAL) Albumin Creatinine Ratio, Urine (06/22/2023 4:12 PM CDT) Albumin Ur 106.7 mg/L Comment: Interpretive Data No reference range established. Current interpretive data was last revised 2018. Creatinine Ur 22.2 mg/dL [facility] Comment: Interpretive Data No reference range established. Current interpretive data was last revised 2018. Albumin Creatinine Ratio, Ur 481(H) 1 - 29 mg/g [facility] Urine 06/22/2023 4:12 PM CDT 06/22/2023 7:49 PM CDT Result [facility] Ronan Ellis MD LAB URINE ORDERABLES Emma l Result Performing Organization Address [facility] de Phone Number MA[place] [address] [address] [employer] [place] [address] * (ABNORMAL) DIABETES EYE EXAM (05/25/2023 9:06 AM CDT) SCRIBED DIABETIC DILATED EYE EXAM Abnormal Result [facility] Historical [facility] Final Result * DIAGNOSTIC MAMMOGRAM BILATERAL W MARYAM (07/10/2022) Anatomical Region Laterality Modality Breast Bilateral Mammography Ronan Ellis MD IMG MAMMO PROCEDURES Emma l Result * DIABETES FOOT EXAM (03/02/2017) Diabetic Foot Exam Normal SCRIBED DM FOOT SITES SENSED 6 Result [facility] Historical [facility] Final Result * HM COLONOSCOPY (02/22/2011) Colonoscopy Unknown Comment:Dr Gomez @[facility] in 2011 or 2012 Result [facility] Floresita Elias MD HEALTH MAINTENANCE Final Result from Last 3 Months or Most Recently Relevant to Health Maintenance Insurance MEDICARE ADVANTAGE MEDICARE ADVANTAGE Care Teams Computer Graphics Illustrator Relationship Specialty Start Date End [place] [address] PCP - General 05/22/16
== END 2024-07-26 10:18 | disposition home or self-care (01) ==
LOC: ANHIMG 10:22
PROVIDERS: PCP Family Medicine; Visit Provider Family Medicine
DX: R92.8 Other abnormal and inconclusive findings on diagnostic imaging of breast (principal)
CPT/HCPCS: 76642; 77062; 77066; G0279